=== PATIENT | male | born 1960 | race Caucasian/White ===

== ENCOUNTER 2017-04-02 07:09 | Day surgery (SDC) | payer OTHER ==
[2017-04-02] MEDS ORDERED: LIDOCAINE HCL/PF 2% 100 MG/5 ML VIAL IJ ONE (08:00)
[2017-04-02] MEDS ORDERED: LACTATED RINGERS 1,000 ML IV.SOLN IV ONE (08:00)
[2017-04-02] MEDS ORDERED: SALINE FLUSH 10 ML DISP.SYRIN IVF ONE (08:00)
[2017-04-02] MEDS ORDERED: PROPOFOL 200 MG/20 ML VIAL IV ONE (08:00)
--- NOTE | 2017-04-03 16:01 | GI Report ---
REFERRING PHYSICIAN: ELSA Perez SUPERVISOR CURED MEATS: Noel Ramirez MD PROCEDURE MEDICATION: Propofol as per anesthesia. INDICATIONS: The patient is a 56-year-old man from [place], [place], who is referred for a colonoscopy. It is his first colonoscopy. He does tend to have constipation. His father of colon cancer at 68. The patient has never had his colon looked at before. PROCEDURE PERFORMED: Colonoscopy. PROCEDURE: An Olympus video colonoscope was advanced to the rectum. The prep was fair. We were able to finally reach the cecum. The appendiceal orifice and ileocecal valve were normal. On slow withdrawal, the cecum, ascending colon, and transverse colon with no obvious intraluminal lesions noted. The descending colon and sigmoid with some redundancy but no obvious intraluminal lesions noted. Retroflexion of the rectum was normal except for some hemorrhoids. Patient tolerated the procedure well. FINDINGS: Normal-appearing mucosa to the cecum, though the prep still had some dark fluid , which would make it difficult to see small polyps. RECOMMENDATION: 1. A high-fiber diet. 2. With his family history of his father dying of colon cancer, recommend having his colon looked at again in 5 years. 3. He is a high-risk screening. cc: ELSA Perez [facility]
== END 2017-04-02 11:30 ==
LOC: OPSURG 07:09
PROVIDERS: ATTEND Internal Medicine Gastroenterology
DX: Z12.11 Encounter for screening for malignant neoplasm of colon (principal)
CPT/HCPCS: 45378; J2001; J2704; J7120; S1016

== ENCOUNTER 2017-05-02 10:01 | Outpatient (CLI) | payer OTHER | END 2017-05-02 10:03 | LOC: POD 10:01 | PROVIDERS: ATTEND Podiatrist Public Medicine | DX: L84 Corns and callosities (principal); M79.672 Pain in left foot; M79.671 Pain in right foot; M20.11 Hallux valgus (acquired), right foot; M20.12 Hallux valgus (acquired), left foot | CPT/HCPCS: 99213 ==